=== PATIENT | male | born 1960 | race Caucasian/White ===

== ENCOUNTER 2022-04-13 13:13 | Emergency (ER) | payer BC ==
[~2022-04-13] VITALS: Ht 182.9 cm; Wt 79.4 kg
--- NOTE | 2022-04-13 14:00 | NUR ---
seen pt at bedside
[2022-04-13] MEDS ORDERED: HYDR-4303 PO (14:13)
[2022-04-13] MEDS ORDERED: CEPH500T PO (14:14)
[2022-04-13] MEDS ORDERED: TDAP [DIPH/PERTUSSIS/TET] 0.5 ML VIAL IM ONE ×2 (14:28→14:30)
[2022-04-13] MEDS ORDERED: HYDROCODONE/APAP 5/325MG TABLET ONE (14:28)
[2022-04-13] MEDS ORDERED: HYDROCODONE/APAP 5/325MG TABLET PO ONE (14:30)
--- NOTE | 2022-04-13 14:30 | NUR ---
tdap given im
[2022-04-13 15:02] VITALS: BP 142/74
--- NOTE | 2022-04-13 15:02 | NUR ---
Patient discharged to home in stable condition. Written and verbal after care instructions given. Patient verbalizes understanding of instruction.
== END 2022-04-13 15:03 | disposition home or self-care (01) ==
LOC: ER 13:19
DX: S62.635B Displaced fracture of distal phalanx of left ring finger, initial encounter for open fracture (principal); E78.00 Pure hypercholesterolemia, unspecified; Z79.899 Other long term (current) drug therapy; W20.8XXA Other cause of strike by thrown, projected or falling object, initial encounter; Y93.89 Activity, other specified; Y92.89 Other specified places as the place of occurrence of the external cause; Y99.8 Other external cause status
CPT/HCPCS: 73140-TC; 90715